=== PATIENT | female | born 1955 | race Caucasian/White ===

== ENCOUNTER 2017-11-17 14:00 | Outpatient (CLI) | payer BC, OTHER | END 2017-11-17 14:01 | disposition home or self-care (01) | LOC: CTENTCT 14:00 | PROVIDERS: ATTEND Specialist | DX: J32.8 Other chronic sinusitis (principal) | CPT/HCPCS: 70486 ==

== ENCOUNTER 2017-12-14 14:21 | Outpatient (CLI) | payer BC, OTHER ==
[2017-12-14 14:56] LABS: Hemoglobin 14.4 g/dL (12.0-16.0); Mean Corpuscular HGB CONC 33.1 g/dL (32.0-36.0); Mean Corpuscular Hemoglobin 29.8 pg (27.0-31.0); Mean Corpuscular Volume 89.9 fl (81.0-99.0); Mean Platelet Volume 6.7 fL (7.4-10.4); Platelet Count 376 thou/uL (130-400); RBC Distribution Width 13.1 % (11.5-14.5); Red Blood Cell (RBC) Count 4.85 mill/uL (4.20-5.40); White Blood Cell (WBC) Count 7.9 thou/uL (4.8-10.8)
[2017-12-14 15:23] LABS: Anion Gap 10 mmol/L (10-20); BUN (Urea Nitrogen) 13 mg/dL (9.8-20.1); Calc. Creatinine Clearance 0 mL/min (70-130); Calcium 9.7 mg/dL (7.8-10.44); Carbon Dioxide 32 mmol/L (23-31); Chloride 103 mmol/L (98-107); Estimated GFR-MDRD 78; Glucose 71 mg/dL (80-115); Potassium 4.1 mmol/L (3.5-5.1); Sodium 141 mmol/L (136-145)
== END 2017-12-14 14:22 | disposition home or self-care (01) ==
LOC: LABBT 14:21
PROVIDERS: ATTEND Orthopaedic Surgery Hand Surgery
DX: Z01.812 Encounter for preprocedural laboratory examination (principal); G56.01 Carpal tunnel syndrome, right upper limb; M65.331 Trigger finger, right middle finger; G57.81 Other specified mononeuropathies of right lower limb; M72.0 Palmar fascial fibromatosis [Dupuytren]
CPT/HCPCS: 80048; 85027

== ENCOUNTER 2017-12-15 06:54 | Day surgery (SDC) | payer BC, OTHER ==
[2017-12-14 14:53] VITALS: BMI 37.8
[2017-12-15] MEDS ORDERED: CEFAZOLIN/Water 2 GM/20 ML SYRINGE ONE (08:03)
[2017-12-15] MEDS ORDERED: Bacitracin Zinc Ointment 30 gm TUBE ONE (08:48)
[2017-12-15] MEDS ORDERED: Betamet Acet/Betamet Na Ph 30 MG/5 ML VIAL ONE (08:48)
[2017-12-15] MEDS ORDERED: Bupivacaine 0.5% 10 ML VIAL ONE ×2 (08:48→09:46)
[2017-12-15] MEDS ORDERED: Midazolam HCl 2 mg/2 ml Vial ONE (08:49)
[2017-12-15] MEDS ORDERED: Fentanyl 100 MCG/2 ML VIAL ONE (08:49)
[2017-12-15] MEDS ORDERED: Ketorolac Tromethamine 30 MG/ML VIAL ONE ×2 (11:04→14:58)
[2017-12-15] MEDS ORDERED: diphenhydrAMINE 50 MG/ML VIAL ONE (14:58)
[2017-12-15] MEDS ORDERED: Ondansetron HCl/PF 4 MG/2 ML Vial ONE (14:58)
[2017-12-15] MEDS ORDERED: Dexamethasone 20 MG/5 ML VIAL ONE (14:58)
[2017-12-15] MEDS ORDERED: Lidocaine 1% PF 5 ML VIAL ONE (14:58)
[2017-12-15] MEDS ORDERED: Metoclopramide HCl 10 MG/2 ML VIAL ONE (14:58)
[2017-12-15] MEDS ORDERED: Propofol 200 MG/20 ML VIAL ONE (14:58)
--- NOTE | 2017-12-15 18:23 | OP ---
PREOPERATIVE DIAGNOSES: 1. Right first dorsal compartment tenosynovitis/de Quervain's . 2. Right palmar thumb Dupuytren's cord. 3. Right middle finger A1 johana tenosynovitis. 4. Right ulnar middle finger just distal to the A1 johana mass, possible neuroma. 5. Carpal tunnel syndrome. POSTOPERATIVE DIAGNOSES: 1. Three tendon sheath presence with extra compartment for the extensor pollicis brevis and te nosynovitis, radial nerves intact. 2. Very tight transcarpal ligament with only one 1 cm stiff and then earlier erythema and early gout from carpal tunnel. 3. Very tight A1 johana, middle finger. 4. Almost blue domed cystic mass, 4 mm over the digital nerve, ulnar aspect of the ring finger, midd le finger/long finger. 5. A 1.5 cm Dupuytren's cord, subcutaneous, at the thumb. PROCEDURES PERFORMED: 1. First dorsal compartment release/de Quervain's release, first dorsal compartment. 2. A1 johana release, middle finger, right. 3. Right carpal tunnel release. 4. Right Dupuytren's cord excision at the thumb. 5. Right middle finger A1 johana release. 6. Right middle finger ulnar aspect A1 johana region, blue dome appearance cyst and excision of mass biopsy. HISTORY: The patient had had a history of all the problems above and we discussed the fact that she still had a first dorsal compartment and thumb tenderness verified today. In surgery that this also was still symptomatic, so we added this to the procedure as well as the listed procedures described sonya mckeon. This was confirmed on exam and with the patient face to face in preop area. This was also lis saleem on the preoperative scheduled sheet. The patient had symptoms in the all 5 sites approach today. DESCRIPTION OF PROCEDURE: After successful general LMA technique, the patient had the limb prepped a nd draped. The patient underwent a lot of all his incisions and they were all injected with a total of 10 mL 0.5% Marcaine divided equally before the procedure began. At first, we inflated the tourniq uet after exsanguination of limb to 250 mmHg pressure. Then first, we approached 2 small masses. A 1.5 cm incision made in zigzag fashion over the thenar mass, we found it slightly attached to the ski n, took a small 2-3 mm wide, 1 cm long piece of skin and then the palmar mass was attached to this. Dissected free of the nerve and took out a Dupuytren cord that was 2.5 mm wide and 1.5 cm long. This piece of skin was sent as specimen. We then made a generous incision to approach the middle finger on its ulnar aspect and then go back t owards the midline to take care of both the A1 johana as well as the mass. We dissected down over th e mass where there was thickening of the palmar pad, moved some of the palmar pad that was thick and underneath cystic type mass, which we excised. We then found this mass, it was almost 3.5 to 4 mm in diameter was right over the ulnar digital nerve at this site. At this point, it was dissected free from the nerve. We then visualized the A1 johana, protected all the median nerves, released A1 pulle y where it was tight involving with no flexor tenosynovitis, so this type of procedure was not indica saleem, but the A1 johana was not released. We turned our attention then to the first dorsal compartment where the patient was still symptomatic and pretty tender and had positive Fredi and had previous biopsy or so. We released this area through a 2 cm incision, carried down to skin, subcutaneous tissue, identified the superficial radial nerve and all branches, from the midline, released first dorsal compartment. We then foun d that the patient had very thick tendons, two large and one small sleeve of the abductor pollicis lo ngus and extensor pollicis brevis in separate compartment that required release as well. There was m arked sclerosis and tenosynovitis. We then approached the carpal tunnel using a 2.5 cm incision, began at 5 mm distal to the volar wrist flexion crease, allowed the ring finger going to the level of Gastelum's cardinal line. This was up t o skin and subcutaneous tissue. We did find transcarpal ligament just ulnar to the palmaris longus i nsertion and released this in the midline first from the midpoint distally visualizing the digital ne rve branches and the arch, then from the midpoint proximally, using the combination of [employer] [place] blade a nd tenotomy scissors. Once all sites were completed, we put Celestone 1.5 mL over the A1 johana morro on, carpal tunnel and first dorsal compartment. We released the tourniquet, obtained hemostasis, and closed each wound individually with interrupted 4-0 nylon with a simple pattern at all sites except for the carpal tunnel for which had the surgical procedure now completed by this closure. We gave an additional 10 mL of 0.5% Marcaine divided equally in all five incisions. Bulky dressing was applied without splint. The patient left the operating room without complication.
== END 2017-12-15 12:27 | disposition home or self-care (01) ==
LOC: SDC 06:54
PROVIDERS: ATTEND Orthopaedic Surgery Hand Surgery
PROC: 0JNJ0ZZ Release Right Hand Subcutaneous Tissue and Fascia, Open Approach (ICD-10-PCS; principal; 2017-12-15)
PROC: 0LN70ZZ Release Right Hand Tendon, Open Approach (ICD-10-PCS; principal; 2017-12-15)
PROC: 01N50ZZ Release Median Nerve, Open Approach (ICD-10-PCS; principal; 2017-12-15)
DX: M65.4 Radial styloid tenosynovitis [de Quervain] (principal); M72.0 Palmar fascial fibromatosis [Dupuytren]; M65.9 Synovitis and tenosynovitis, unspecified; M65.331 Trigger finger, right middle finger; G56.01 Carpal tunnel syndrome, right upper limb; M25.841 Other specified joint disorders, right hand; I48.0 Paroxysmal atrial fibrillation; F41.9 Anxiety disorder, unspecified; Z79.899 Other long term (current) drug therapy; Z79.82 Long term (current) use of aspirin; Z79.51 Long term (current) use of inhaled steroids
CPT/HCPCS: 88304; 88305; J0131; J0702; J1100; J1200; J1885; J2001; J2250; J2405; J2704; J2765; J3010; J3490

== ENCOUNTER 2019-12-24 12:31 | Outpatient (CLI) | payer OTHER | END 2019-12-24 12:32 | disposition home or self-care (01) | LOC: DTY/OP 12:31 | PROVIDERS: ATTEND Family Medicine | DX: E66.9 Obesity, unspecified (principal) | CPT/HCPCS: 97802 ==

== ENCOUNTER 2022-04-21 08:05 | Outpatient (CLI) | payer MEDICARE, BC, OTHER ==
[2022-04-21] MEDS ORDERED: Iopamidol 370 76% 100 ML VIAL ONE (11:12)
== END 2022-04-21 08:06 | disposition home or self-care (01) ==
LOC: CT 08:05
PROVIDERS: ATTEND Internal Medicine Cardiovascular Disease
DX: I27.20 Pulmonary hypertension, unspecified (principal)
CPT/HCPCS: 71275; 82565; Q9967

== ENCOUNTER 2024-11-29 10:55 | Outpatient (CLI) | payer MEDICARE, OTHER | END 2024-11-29 10:56 | disposition home or self-care (01) | LOC: SCSRAD 10:55 | PROVIDERS: ATTEND Family Medicine | DX: R20.2 Paresthesia of skin (principal); M47.812 Spondylosis without myelopathy or radiculopathy, cervical region | CPT/HCPCS: 72040 ==

== ENCOUNTER 2024-12-03 11:45 | Outpatient (CLI) | payer MEDICARE, OTHER | END 2024-12-03 11:46 | disposition home or self-care (01) | LOC: CT 11:45 | PROVIDERS: ATTEND Family Medicine | DX: R91.1 Solitary pulmonary nodule (principal) | CPT/HCPCS: 71250 ==

== ENCOUNTER 2025-07-25 12:12 | Outpatient (CLI) | payer MEDICARE, OTHER | END 2025-07-25 12:13 | disposition home or self-care (01) | LOC: SCSBT 12:12 | PROVIDERS: ATTEND Family Medicine | DX: Z78.0 Asymptomatic menopausal state (principal) | CPT/HCPCS: 77080 ==